=== PATIENT | male | born 1930 | race Caucasian/White ===

== ENCOUNTER → 2017-03-11 | Outpatient (CLI) | payer MEDICARE ==
--- NOTE | 2017-03-12 12:06 | REP ---
Clinical: Abnormal lung findings. Comparison: None. Findings: Lung carrion are symmetrically aerated and demonstrate scattered calcified pleural plaques along with moderate bronchiectasis and minimal basilar scarring. No consolidation. A 4 mm noncalcified nodules identified in the periphery of the left upper lobe (image 55) and a small 3 mm noncalcified density is identified in right middle lobe (image 66). Smaller scattered subtle calcification with surrounding scarring also appreciated in the right upper lobe (image 31). No pleural effusion or pneumothorax. No significant adenopathy. Atherosclerotic changes to the thoracic aorta and coronary arteries noted without cardiomegaly or pericardial effusion. Thyroid gland appears normal. Skeletal structures demonstrate age-related degenerative changes. Upper abdomen demonstrates normal bilateral adrenal glands. Impression: 1. 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 2. Small noncalcified nodules as noted above warrant comparison with prior examinations if available or follow-up examination in 3 - 6 months. 3. Chronic changes including atherosclerotic disease and degenerative changes the musculoskeletal structures. Signed by Andreas Heller MD 03/12/2017 11:58 A
== END ==
LOC: M RAD 08:18
PROVIDERS: ATTEND Internal Medicine Pulmonary Disease
DX: R91.8 Other nonspecific abnormal finding of lung field (principal)

== ENCOUNTER → 2017-11-05 | Outpatient (CLI) | payer MEDICARE ==
[2017-11-05 18:18] LABS: APPEARANCE, URINE CLOUDY (CLEAR); BACTERIA, URINE AUTO 2+ (NEGATIVE); BILIRUBIN, URINE AUTO NEGATIVE (NEGATIVE); BLOOD, URINE BLOOD NEGATIVE (NEGATIVE); GLUCOSE, URINE (UA) AUTO NEGATIVE (NEGATIVE); KETONE, URINE AUTO NEGATIVE (NEGATIVE); LEUKOCYTE ESTERASE, URINE AUTO 3+ (NEGATIVE); NITRITE, URINE AUTO NEGATIVE (NEGATIVE); PROTEIN, URINE AUTO NEGATIVE (NEGATIVE); RBC, URINE AUTO 9 /HPF (0-3); SPECIFIC GRAVITY URINE AUTO 1.021 (1.002-1.035); SQUAMOUS EPITHELIAL CELL UR AU 0 /HPF (0-6); UROBILINOGEN, URINE AUTO 0.2 mg/dL (0.0-2.0); WBC, URINE AUTO 162 /HPF (0-3)
[2017-11-05 19:31] LABS: PROSTATIC SPECIFIC AG MONITOR 6.71 NG/ML (< 4.0)
[2017-11-05 19:52] LABS: COLOR, URINE YELLOW (YELLOW)
== END ==
LOC: M SMT 14:56
DX: R97.20 Elevated prostate specific antigen [PSA] (principal); Z79.899 Other long term (current) drug therapy
CPT/HCPCS: 84153

== ENCOUNTER → 2018-07-20 | Outpatient (REF) | payer MEDICARE ==
[2018-07-20 11:09] LABS: APPEARANCE, URINE HAZY (CLEAR); BACTERIA, URINE AUTO NEGATIVE (NEGATIVE); BILIRUBIN, URINE AUTO NEGATIVE (NEGATIVE); BLOOD, URINE BLOOD NEGATIVE (NEGATIVE); CALCIUM OXALATE CRYSTALS SMALL; COLOR, URINE AMBER (YELLOW); GLUCOSE, URINE (UA) AUTO NEGATIVE (NEGATIVE); KETONE, URINE AUTO NEGATIVE (NEGATIVE); LEUKOCYTE ESTERASE, URINE AUTO NEGATIVE (NEGATIVE); MUCUS, URINE LARGE (NEGATIVE); NITRITE, URINE AUTO NEGATIVE (NEGATIVE); PROTEIN, URINE AUTO NEGATIVE (NEGATIVE); RBC, URINE AUTO 3 /HPF (0-3); SPECIFIC GRAVITY URINE AUTO 1.025 (1.002-1.035); SQUAMOUS EPITHELIAL CELL UR AU 0 /HPF (0-6); WBC, URINE AUTO 2 /HPF (0-3)
== END ==
LOC: M SMT 10:42
PROVIDERS: ATTEND Nurse Practitioner Women's Health
DX: R35.0 Frequency of micturition (principal)
CPT/HCPCS: 51798; 81001; 87086; G0463

== ENCOUNTER → 2018-10-23 | Outpatient (CLI) | payer MEDICARE ==
--- NOTE | 2018-10-23 15:19 | REP ---
MR BRAIN WITHOUT CONTRAST: HISTORY: Dizziness An ill-defined mass that is increased in signal intensity on T2-weighted images is present in the right cerebellum. There is mass effect with partial effacement of the fourth ventricle with minimal shift to the left. Areas of increased signal intensity on T2-weighted images are present in the periventricular and subcortical white matter. This represents small vessel ischemic disease. There is no intraparenchymal hemorrhage or infarct. The ventricular system and cortical sulci are dilated consistent with moderate volume loss. There is no extracerebral collection. IMPRESSION: There is an ill-defined mass in the right cerebellum with mass effect and minimal midline shift to the left. 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 Results were discussed with Dr. Camilo Garcia at 1435 on 10/23/2018. Electronically Signed by Dustin Taylor MD 10/23/2018 03:29 P
== END ==
LOC: M RAD 12:50
PROVIDERS: ATTEND Family Medicine
DX: D43.1 Neoplasm of uncertain behavior of brain, infratentorial (principal)

== ENCOUNTER → 2019-02-15 | Outpatient (REF) | payer MEDICARE ==
[2019-02-15 13:38] LABS: APPEARANCE, URINE TURBID (CLEAR); BACTERIA, URINE AUTO NEGATIVE (NEGATIVE); BILIRUBIN, URINE AUTO NEGATIVE (NEGATIVE); BLOOD, URINE BLOOD 3+ (NEGATIVE); COLOR, URINE AMBER (YELLOW); GLUCOSE, URINE (UA) AUTO NEGATIVE (NEGATIVE); KETONE, URINE AUTO NEGATIVE (NEGATIVE); LEUKOCYTE ESTERASE, URINE AUTO 2+ (NEGATIVE); MUCUS, URINE LARGE (NEGATIVE); NITRITE, URINE AUTO NEGATIVE (NEGATIVE); PROTEIN, URINE AUTO 2+ mg/dL (NEGATIVE); RBC, URINE AUTO TNTC /HPF (0-3); SPECIFIC GRAVITY URINE AUTO 1.026 (1.002-1.035); SQUAMOUS EPITHELIAL CELL UR AU 0 /HPF (0-6); UROBILINOGEN, URINE AUTO 0.2 mg/dL (0.0-2.0); WBC, URINE AUTO TNTC /HPF (0-3)
== END ==
LOC: M LAB REF 12:56
PROVIDERS: ATTEND Urology
DX: N39.41 Urge incontinence (principal); R31.9 Hematuria, unspecified
CPT/HCPCS: 51798; 81001; 87088; 87186; G0463